=== PATIENT | female | born 1985 | race American Indian/Alaskan Native ===

== ENCOUNTER 2016-12-21 17:40 | Emergency (ER) | payer OTHER ==
[2016-12-21] MEDS ORDERED: TORADOL IM ONE (20:08)
[2016-12-21 20:24] VITALS: BP 123/81
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
== END 2016-12-21 21:26 | disposition home or self-care (01) ==
LOC: ED 17:40
DX: R51 Headache (principal); M54.2 Cervicalgia; M79.642 Pain in left hand; M54.9 Dorsalgia, unspecified; Z88.0 Allergy status to penicillin; V89.2XXA Person injured in unspecified motor-vehicle accident, traffic, initial encounter; Y93.89 Activity, other specified; Y99.8 Other external cause status; Y92.89 Other specified places as the place of occurrence of the external cause
CPT/HCPCS: 96372; 99282; J1885